=== PATIENT | male | born 1970 | race Caucasian/White ===

== ENCOUNTER → 2020-08-19 | Outpatient (CLI) | payer OTHER ==
--- NOTE | 2020-08-19 12:50 | CARD ---
MR#: [id number] Date of Study: 08/19/2020 Ordering Physician: MOMO ROSSI, Referring Physician: MOMO ROSSI, Tech: Sonia Ayala APPROVED REPORT EXAM: Two-dimensional and M-mode echocardiogram with Doppler and color Doppler. Other Information Quality : AverageHR: 69bpm Technically limited study due to body habitus, Obesity INDICATION Atrial Fibrillation RISK FACTORS Diabetes 2D DIMENSIONS RVDd4.7 (2.9-3.5cm)Left Atrium(2D)3.7 (1.6-4.0cm) IVSd1.2 (0.7-1.1cm)Aortic Root(2D)3.9 (2.0-3.7cm) LVDd6.2 (3.9-5.9cm)LVOT Diameter2.2 (1.8-2.4cm) PWd1.2 (0.7-1.1cm)LVDs4.3 (2.5-4.0cm) FS (%) 30.4 %SV108.3 ml LVEF(%)56.8 (>50%) Aortic Valve AoV Peak Ghassan.91.3cm/sAoV VTI17.6cm AO Peak GR.3.3mmHgLVOT Peak Ghassan.80.9cm/s LVOT VTI 16.96cmAO Mean GR.2mmHg RACHEAL (VMAX)2.84ux0NMC (VTI)3.69cm2 Mitral Valve MV E Psylxsel40.6cm/sMV DECEL BCTI085sq MV A Jukrgblh61.5cm/sMV CUL43bb E/A Ratio1.2MVA (PHT)3.01cm2 TDI E/Lateral E'7.8E/Medial E'9.3 Pulmonary Valve PV Peak Fccggfyk24.3cm/sPV Peak Grad.3mmHg Tricuspid Valve TR P. Wxmhuqrq593xg/sRAP CDEAUMYP3ldEo TR Peak Gr.16cfDuVRWN37pdVy Pulmonary Vein S1 Wqitvrbi60.5cm/sD2 Dwapaefd51.5cm/s PVa ocahegnp300wnrp LEFT VENTRICLE The left ventricle is normal size. There is mild to moderate concentric left ventricular hypertrophy. The left ventricular systolic function is normal. The Ejection Fraction is 55%. There is normal LV s egmental wall motion. Transmitral Doppler flow pattern is Grade II-pseudonormal filling dynamics. RIGHT VENTRICLE The right ventricle is mildly dilated. There is normal right ventricular wall thickness. The right ve ntricular systolic function is normal. ATRIA The left atrium is mildly dilated. The right atrium is borderline dilated. The interatrial septum is intact with no evidence for an atrial septal defect or patent foramen ovale as noted on 2-D or Dopple r imaging. AORTIC VALVE The aortic valve is thickened but opens well. Doppler and Color Flow revealed no significant aortic r egurgitation. There is no significant aortic valvular stenosis. Calculated aortic valve area is 3.24 cm2 with maximum pressure gradient of 5 mmHg and mean pressure gradient of 2 mmHg. MITRAL VALVE The mitral valve is thickened but opens well. There is no evidence of mitral valve prolapse. There is no mitral valve stenosis. Doppler and Color-flow revealed trace mitral regurgitation. TRICUSPID VALVE The tricuspid valve is normal in structure and function. Doppler and Color Flow revealed trace tricus pid regurgitation with an estimated PAP of 31 mmHg. There is no tricuspid valve stenosis. PULMONIC VALVE The pulmonic valve is not well visualized. Doppler and Color Flow revealed trace pulmonic valvular re gurgitation. GREAT VESSELS The aortic root is normal in size. The ascending aorta is Mildly dilated. The IVC is normal in size a nd collapses >50% with inspiration. PERICARDIAL EFFUSION There is no evidence of significant pericardial effusion. Critical Notification Critical Value: No <Conclusion> The left ventricular systolic function is normal. The Ejection Fraction is 55%. There is normal LV segmental wall motion. Transmitral Doppler flow pattern is Grade II-pseudonormal filling dynamics. Trace mitral regurgitation. Trace tricuspid regurgitation with an estimated PAP of 31 mmHg. There is no evidence of significant pericardial effusion. Signed by : Momo Rossi, Electronically Approved : 08/19/2020 12:49:57
== END ==
LOC: ECHO 07:51 → EDUNIT# 08:00
PROVIDERS: ATTEND Internal Medicine Cardiovascular Disease
DX: I48.91 Unspecified atrial fibrillation (principal); I51.7 Cardiomegaly
CPT/HCPCS: 93017; 93306

== ENCOUNTER → 2021-08-24 | Outpatient (CLI) | payer OTHER ==
[~2021-08-24] MED LIST: PERFLUTREN PROTEIN-A MICROSPHR 0.22 MG/ML 3 ML VIAL. IV ONE
--- NOTE | 2021-08-24 16:59 | CARD ---
MR#: [id number] Date of Study: 08/24/2021 Ordering Physician: MOMO DAMIAN, Referring Physician: MOMO DAMIAN Tech: Barbara Kate [facility] APPROVED REPORT EXAM: Two-dimensional and M-mode echocardiogram with Doppler and color Doppler. Other Information Quality : Technically LimitedHR: 66bpm Rhythm : NSR INDICATION Dyspnea RISK FACTORS Hypertension Obesity Hyperlipidemia 2D DIMENSIONS RVDd3.3 (2.9-3.5cm)Left Atrium(2D)4.6 (1.6-4.0cm) IVSd1.4 (0.7-1.1cm)Aortic Root(2D)4.0 (2.0-3.7cm) LVDd5.3 (3.9-5.9cm)LVOT Diameter2.8 (1.8-2.4cm) PWd1.3 (0.7-1.1cm)LVDs4.0 (2.5-4.0cm) FS (%) 25.8 %SV69.5 ml LVEF(%)50.3 (>50%) Aortic Valve AoV Peak Ghassan.105.6cm/sAoV VTI21.0cm AO Peak GR.4.5mmHgLVOT Peak Ghassan.78.9cm/s AO Mean GR.2mmHgAVA (VMAX)4.64cm2 Mitral Valve MV E Cbizkdnj37.6cm/sMV DECEL [id number] MV A Rjwhrzrh16.5cm/sE/A Ratio1.0 Pulmonary Valve PV Peak Zvoncmyn81.9cm/s Tricuspid Valve TR P. Qggipgaw406gt/sTR Peak Gr.18mmHg LEFT VENTRICLE The left ventricle is normal size. There is mild concentric left ventricular hypertrophy. The left ve ntricular systolic function is normal. The ejection fraction is 55-60%. There is normal LV segmental wall motion. Transmitral Doppler flow pattern is Grade II-pseudonormal filling dynamics. RIGHT VENTRICLE The right ventricle is normal size. There is normal right ventricular wall thickness. The right ventr icular systolic function is normal. ATRIA The left atrium size is normal. The right atrium size is normal. The interatrial septum is intact wit h no evidence for an atrial septal defect or patent foramen ovale as noted on 2-D or Doppler imaging. AORTIC VALVE The aortic valve is normal in structure and function. Doppler and Color Flow revealed no significant aortic regurgitation. There is no significant aortic valvular stenosis. MITRAL VALVE The mitral valve is normal in structure and function. There is no evidence of mitral valve prolapse. There is no mitral valve stenosis. Doppler and Color-flow revealed trace mitral regurgitation. TRICUSPID VALVE The tricuspid valve leaflets are thickened , but open well. Doppler and Color Flow revealed trace tri cuspid regurgitation. Estimated PAP 22 mmHg. There is no tricuspid valve stenosis. PULMONIC VALVE The pulmonary valve is normal in structure and function. Doppler and Color Flow revealed no pulmonic valvular regurgitation. GREAT VESSELS The aortic root is mildly enlarged. The ascending aorta is Mildly dilated. Due to poor image quality, the IVC could not be assessed. PERICARDIAL EFFUSION There is no evidence of significant pericardial effusion. Critical Notification Critical Value: No <Conclusion> Technically difficult study. Optison echo contrast used for better definition. The left ventricular systolic function is normal. The ejection fraction is 55-60%. There is normal LV segmental wall motion. Transmitral Doppler flow pattern is Grade II-pseudonormal filling dynamics. Trace mitral regurgitation. Trace tricuspid regurgitation. Estimated PAP 22 mmHg. There is no evidence of significant pericardial effusion. Signed by : oMmo Damian, Electronically Approved : 08/24/2021 16:59:23
== END ==
LOC: ECHO 12:41
PROVIDERS: ATTEND Internal Medicine Cardiovascular Disease
DX: I51.7 Cardiomegaly (principal); I48.0 Paroxysmal atrial fibrillation
CPT/HCPCS: C8929; Q9956